=== PATIENT | female | born 1960 | race Caucasian/White ===

== ENCOUNTER 2019-12-23 01:16 | Inpatient (IN) | payer BC ==
[~2019-12-23] VITALS: Ht 162.6 cm; Wt 102.0 kg
[2019-12-23] VITALS (12 sets, daily range): BP systolic 110–131; BP diastolic 58–88
--- NOTE | 2019-12-23 01:10 | NUR ---
Admit to [address] [facility] ED. Patient tripped down 2 stairs and presents w/ dx fractured right femur. Is A&O, [place], right leg in immobilizer. Right leg shorter than left. +2 pedal pulse per palpation. VSS. NPO.
[~2019-12-23 01:16] MED LIST: CHOL10003 PO; FEXO180T81 PO; FLUT9.9S NS
--- NOTE | 2019-12-23 02:10 | NUR ---
Admit orders rec'd from Dr. Vance.
[2019-12-23] MEDS ORDERED: ONDANSETRON PF 4 MG/2 ML VIAL. IVP PRN ×2 (02:30→14:45)
[2019-12-23] MEDS: IV NORMAL SALINE 1000ML BAG 1,000 ML IV SCH ×2 (03:00→21:39)
[2019-12-23] MEDS: MORPHINE SULFATE 2 MG/ML VIAL. IV PRN ×3 (03:02→10:55)
--- NOTE | 2019-12-23 07:18 | NUR ---
16 Fr Wang inserted w/o difficulty. About 300cc nannette urine returned.
--- NOTE | 2019-12-23 07:27 | NUR ---
Consult to Dr. Sanchez called to answering service.
--- NOTE | 2019-12-23 09:08 | NUR ---
SW following. Discussed with RN, pt is from home with family, having hip surgery today. RN advised no SW needs at this time. Possible home health at discharge. SW will continue to follow.
--- NOTE | 2019-12-23 09:44 | PDOC1 ---
History and Physical Date of Admission Date of Admission DATE: 12/23/19 TIME: 09:42 History of Present Illness History of Present Illness Patient is a 59-year-old female presenting with knee pain. She slipped down 6 steps in her house she was having trouble walking she just lost missed a step no other past medical history no daily medications are otherwise healthy did not hit her head no neck pain no back pain just the knee pain no hip pain she tells me. 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 Past Medical History Past Medical History seasonal allergies only Cardiovascular: No pertinent hx Pulmonary: No pertinent hx Hepatobiliary: No pertinent hx Psych: No pertinent hx Rheumatologic: No pertinent hx Infectious disease: No pertinent hx Renal/: Chronic renal failure Past Surgical History Past Surgical History: Hysterectomy (2007) Family History Family History: No Significant Social History Smoke: No ALCOHOL: none Drugs: None Current Medications Current Medications Current Medications Morphine Sulfate (Morphine Sulfate) 2 mg PRN Q2HR PRN IV PAIN Last administered on 12/23/19at 07:14; Start 12/23/19 at 02:30 Ondansetron HCl (Zofran) 4 mg PRN Q4HRS PRN IVP NAUSEA/VOMITING; Start 12/23/19 at 02:30 Sodium Chloride 1,000 ml @ 75 mls/hr [id number] IV Last administered on 12/23/19at 03:00; Start 12/23/19 at 02:30 Active Scripts Active Reported Flonase Allergy Relief (Fluticasone Propionate) 9.9 Ml [place].susp 2 Sprays NS DAILY Vitamin D3 (Cholecalciferol (Vitamin D3)) 1,000 Unit Tablet 2,000 Unit PO DAILY Vy Allergy (Fexofenadine Hcl) 180 Mg Tablet 1 Tab PO DAILY Allergies Allergies: Coded Allergies: No Known Drug Allergies (Unverified , 08/09/16) ROS General: No: Chills, Night Sweats, Fatigue, Malaise, Appetite, Other PSYCHOLOGICAL ROS: No: Anxiety, Behavioral Disorder, Concentration difficultie, Decreased libido, Depression, Disorientation, Hallucinations, Hostility, Irrit ablity, Memory difficulties, Mood Swings, Obsessive thoughts, Physical abuse, Sexual abuse, Sleep disturbances, Suicidal ideation, Other Eyes: No Blurry vision, No Decreased vision, No Double vision, No Dry eyes, No Excessive tearing, No Eye Pain, No Itchy Eyes, No Loss of vision, No Photophobia, No Scotomata, No Uses contacts, No Uses glasses, No Other Respiratory: No: Cough, Hemoptysis, Orthopnea, Pleuritic Pain, Shortness of breath, SOB with excertion, Sputum Changes, Stridor, Tachypnea, Wheezing, Other Cardiovascular: No Chest Pain, No Palpitations, No Orthopnea, No Paroxysmal Noc. Dyspnea, No Edema, No Lt Headedness, No Other Gastrointestinal: No Nausea, No Vomiting, No Abdominal Pain, No Diarrhea, No Constipation, No Melena, No Hematochezia, No Other Genitourinary: No Dysuria, No Frequency, No Incontinence, No Hematuria, No Retention, No Discharge, No Urgency, No Pain, No Flank Pain, No Other, No , No , No , No , No , No , No Musculoskeletal: Yes Gait Disturbance, Yes Joint Pain; No Joint Stiffness, No Joint Swelling, No Muscle Pain, No Muscular Weakness, No Pain In:, No Swelling In:, No Other Neurological: Yes Gait Disturbance; No Behavorial Changes, No Bowel/Bladder ControlChng, No Confusion, No Dizziness, No Headaches, No Impaired Coord/balance, No Memory Loss, No Numbness/Tingling, No Seizures, No Speech Problems, No Tremors, No Visual Changes, No Weakness, No Other Skin: No Dry Skin, No Eczema, No Hair Changes, No Lumps, No Mole Changes, No Mottling, No Nail Changes, No Pruritus, No Rash, No Skin Lesion Changes, No Other, No Acne Physical Exam General: Alert, Oriented X3, Cooperative, moderate distress (pain with any movement) HEENT: Atraumatic, PERRLA Lungs: Clear to auscultation, Normal air movement Heart: S1S2, no gallops, no murmurs Extremities: No clubbing Skin: No breakdown Neuro: Normal speech, Sensation intact Psych/Mental Status: Mental status NL, Mood NL Vitals Vitals Vital Signs Date Time Temp Pulse Resp B/P (MAP) Pulse Ox O2 Delivery O2 Flow Rate FiO2 12/23/19 08:00 Room Air 12/23/19 08:00 18 12/23/19 07:00 99.4 80 123/70 (87) 94 99.4 VTE Prophylaxis Ordered VTE Prophylaxis Devices: No VTE Pharmacological Prophylaxi: No Assessment/Plan Assessment/Plan fall, acute leg pain imaging showed an oblique fracture to distal femur, surg today obese, BMI 38 DAREN GREENBERG MD Dec 23, 2019 09:43
[2019-12-23] MEDS ORDERED: ceFAZolin 2GM PREMIX 2 GM/50 ML BAG IV ONE ×2 (11:00→14:45)
[2019-12-23] MEDS ORDERED: ROCURONIUM 50 MG/5 ML VIAL. ONE (12:38)
[2019-12-23] MEDS ORDERED: ONDANSETRON PF 4 MG/2 ML VIAL. ONE (12:38)
[2019-12-23] MEDS ORDERED: fentaNYL PF VIAL 100 MCG/2 ML VIAL ONE (12:38)
[2019-12-23] MEDS ORDERED: DEXAMETHASONE SOD PHOS 4 MG/ML VIAL ONE ×2 (12:38→16:49)
[2019-12-23] MEDS ORDERED: LIDOCAINE 2% PF 5 ML VIAL. ONE (12:38)
[2019-12-23] MEDS ORDERED: PROPOFOL 20 ML IV ONE (12:38)
[2019-12-23] MEDS ORDERED: IV RINGERS,LACTATED 1000ML 1,000 ML IV SCH (13:54)
[2019-12-23] MEDS ORDERED: fentaNYL PF VIAL 100 MCG/2 ML VIAL IV PRN ×2 (14:00)
[2019-12-23] MEDS ORDERED: HYDROmorphone 2 MG/ML VIAL IV PRN (14:00)
[2019-12-23] MEDS ORDERED: MORPHINE SULFATE 2 MG/ML VIAL. IV PRN (14:00)
[2019-12-23] MEDS ORDERED: ONDANSETRON PF 4 MG/2 ML VIAL. IV PRN (14:00)
[2019-12-23] MEDS ORDERED: PROCHLORPERAZINE 10 MG/2 ML VIAL. IV PRN (14:00)
[2019-12-23] MEDS ORDERED: ceFAZolin SODIUM IV Push 1 GM VIAL. IVP ONE (14:30)
[2019-12-23] MEDS ORDERED: DEXTROSE 50% 25 GM / 50ML DISP.SYRIN. IV PRN (14:45)
[2019-12-23] MEDS ORDERED: fentaNYL PF VIAL 100 MCG/2 ML VIAL IVP PRN (14:45)
[2019-12-23] MEDS ORDERED: POLYETHYLENE GLYCOL 3350 17 GM PACKET. PO PRN (14:45)
[2019-12-23] MEDS ORDERED: MORPHINE SULFATE 2 MG/ML VIAL. IVP PRN (14:45)
[2019-12-23] MEDS ORDERED: HYDROcodone/APAP 7.5/325MG 1 TAB TABLET PO PRN (14:45)
[2019-12-23] MEDS ORDERED: BUPIVACAINE-EPI 0.5%-1:200000 MPF 30 ML VIAL. ONE (15:27)
[2019-12-23] MEDS ORDERED: WARFARIN 7.5 MG TABLET. PO ONE (16:00)
[2019-12-23] MEDS ORDERED: SEVOFLURANE > 120 MINUTES. IH ONE (16:20)
[2019-12-23] MEDS ORDERED: BUPIVACAINE MPF 0.5% 30 ML VIAL. ONE (16:47)
[2019-12-23] MEDS ORDERED: EPINEPHrine 1 MG/ML VIAL ONE (16:47)
--- NOTE | 2019-12-23 17:15 | CONS ---
DATE OF CONSULTATION: 12/23/2019 ORTHOPEDIC CONSULTATION REQUESTING PHYSICIAN: Dr. Ion Vance. REASON FOR CONSULTATION: Right distal femur fracture. HISTORY OF PRESENT ILLNESS: The patient is a 59-year-old female that slipped down her last 6 steps in her house and just missed a step prior. No loss of consciousness, head injury, neck or back pain, just severe knee pain, inability to bear weight. She presented to [facility] Emergency Department and was sent to [place] for further evaluation and treatment due to her distal femur fracture and inability to ambulate. PAST MEDICAL HISTORY AND SURGICAL HISTORY: She really denies any significant medical or surgical history. SOCIAL HISTORY: Denies tobacco, alcohol or drug use. ALLERGIES: She has no known drug allergies. FAMILY HISTORY: Noncontributory. CURRENT MEDICATIONS: Include morphine and Zofran as well as her home medications of Flonase, Vy and vitamin D3. REVIEW OF SYSTEMS: Significant only for the seasonal allergies recently and the recent onset from her fall of the right knee pain and swelling. Again, denies any loss of consciousness, no chest pain, shortness of breath, recent febrile illness. Respiratory symptoms, burning on urination, focal weakness, numbness or tingling. No other extremity pain is noted. PHYSICAL EXAMINATION: GENERAL: Pleasant, cooperative 59-year-old female, alert and oriented, no acute distress. VITAL SIGNS: Blood pressure 123/70, pulse 80, respirations 18, 94% saturation on room air, temperature 99.4. EXTREMITIES: Examination of the right knee reveals significant swelling and tenderness particularly over the medial aspect of the knee. Ligament stability is not assessed due to her severe pain with any movement. She does keep the knee in a flexed position of comfort. She has normal hip and ankle range of motion, stability bilaterally. Normal examination of the contralateral left knee with intact motor function, distal pulses, sensation, reflexes, skin in both lower extremities throughout. IMAGING: X-rays show a mildly displaced supracondylar intercondylar fracture oblique of the right distal femur that extends from the metaphyseal area into the intercondylar notch again with slight displacement on both AP and lateral views. IMPRESSION: Mildly displaced intercondylar supracondylar right distal femur fracture. TREATMENT PLAN: I went over with her that this break does go into the joint surface itself and I would recommend surgical alignment and stabilization. She will still have to be nonweightbearing until we see significant healing, but this will allow her early range of motion of the knee. We did talk about the possibility of nonhealing, infection, nerve or blood vessel damage, medical or other anesthetic complications among others and the fact that she does have some arthritic change, which may progress, although getting this anatomically aligned as possible is the best alternative to minimize the progression of arthritis aside from the injury itself. All her questions were answered. She wishes to proceed with surgical evaluation and treatment, which will occur today. HUNG BERNAL MD DR: SERJIO/get JOB#: [id number] / [id number]
--- NOTE | 2019-12-23 17:43 | PDOC4 ---
Operative Note Operative Note Date of surgery: 12/23/2019 Preoperative diagnosis: Mildly displaced right supracondylar intercondylar distal femur fracture Postoperative diagnosis: Same Operative procedure: Operative reduction internal fixation right supracondylar intercondylar distal femur fracture with medial locking plate fixation Surgeon: Daniel Assist: Pollo Colin nurse practitioner Anesthesia: Gen. Estimated blood loss: 300 mL Complications: None Operative indications: Please see my dictated orthopedic consultation for detailed operative indications and note particularly that I reviewed with the patient concerns that the fracture extends into the joint surface with some mild displacement and contribution to potential early degenerative change in the joint and risks of further displacement with nonoperative treatment versus the possible risks of infection nonhealing nerve or blood vessel damage medical or other anesthetic complications with surgery and under the best of circumstances that she may have some premature degenerative change in the joint due to the nature the injury. All her questions were answered and she wishes to proceed with surgical evaluation and treatment. Operative text: Patient was identified procedure verified after adequate amounts of general endotracheal anesthesia were administered the right lower extremity was prepped and draped in standard sterile fashion and after timeout was performed patient procedure identified and verified a medial incision was made and dissection carried out through the fascia with minimal release of the vastus medialis inferiorly and reduction was somewhat difficult particularly in the lateral plane resulting in the necessity of a lateral incision made of the distal femur splitting the iliotibial band and again preserving vastus lateralis with minimal release posteriorly and otherwise splitting the fibers to obtain access and obtain anatomic reduction with multiple bone-holding forceps. A left sided Shmuel still femoral locking plate was used to approximate the contour of the distal femur along the medial aspect where the fracture needed the most buttressing and after placement of the plate under AP and lateral fluoroscopic views a single cortical screw was placed in the metaphyseal area to stabilize the plate. Distal cancellus screws were each placed under fluoroscopic guidance and noted excellent placement length and fixation and additional cortical fixation was obtained proximally as the fracture was noted to extend proximally into the diaphysis superiorly and laterally. Adequate fixation was obtained proximal to this hand anatomic reduction noted throughout with adequate hardware placement under multiple fluoroscopic views. Knee motion was verified with good patellofemoral tracking bleeding points were controlled by electrocautery thorough irrigation carried out normal saline solution and fascia closure was accomplished with #1 PDS strata fix suture in a running fashion buried Vicryl suture in subcutaneous closure and 3-0 strata fix Monocryl subcuticular on both incisions which were then reinforced with Steri-Strips and Mastisol and sterile soft dressings were applied. Anesthesia performed a femoral block postoperatively and patient was returned to recovery room in stable condition having tolerated procedure well. Pollo Colin nurse practitioner was present for the procedure assisted in the prepping draping retraction and closure and dressings. HUNG BERNAL MD Dec 23, 2019 17:43
[2019-12-24] MEDS: oxyCODONE IR 5 MG TABLET PO PRN ×2 (00:25→08:38)
[2019-12-24 02:59] VITALS: BP 107/58
[2019-12-24 04:20] LABS: HEMATOCRIT 33.8 % (36.0-47.0); HEMOGLOBIN 11.6 g/dL (12.0-15.5)
[2019-12-24 04:25] LABS: PROTHROMBIN TIME PATIENT 13.8 SEC (11.7-14.0)
[2019-12-24] MEDS: IV NORMAL SALINE 1000ML BAG 1,000 ML IV SCH (05:10)
[2019-12-24] MEDS ORDERED: MAGNESIUM HYDROXIDE 2,400 MG/30 ML ORAL.SUSP. PO PRN (06:00)
[2019-12-24 07:00] VITALS: BP 114/76
--- NOTE | 2019-12-24 08:52 | NUR ---
KESHA following. Discussed with RN, pt from home with family. PT/OT ordered. KESHA awaiting recommendations. Addendum: 12/24/19 at 1221 by DOMINIK REBOLLEDO PT recommending home with assistance. KESHA will continue to follow. Addendum: 12/24/19 at 1425 by DOMINIK REBOLLEDO Discharge order for home health. KESHA met with pt and pt's daughter at bedside. Pt agreeable to home health, would like [facility] as her has had this in the past. Pt agreeable to any home health agency if [facility] cannot accept. KESHA faxed referral, [facility] cannot accept due to being at capacity. KESHA faxed to [facility], awaiting acceptance decision. RN notified. Addendum: 12/24/19 at 1528 by DOMINIK CHAMBERLAIN SW [facility] is also at capacity. Referral faxed to [facility]. Awaiting acceptance decision.
[2019-12-24] MEDS ORDERED: SENNOSIDES/DOCUSATE 8.6/50MG TABLET. PO SCH (09:00)
[2019-12-24] MEDS ORDERED: CETIRIZINE HCL 10 MG TABLET. PO SCH (09:00)
[2019-12-24] MEDS ORDERED: FLUTICASONE 50MCG/NASAL SPRAY 16GM BOTTLE. NS SCH (09:00)
[2019-12-24] MEDS ORDERED: CHOLECALCIFEROL (VITAMIN D3) 1,000 UNIT TABLET PO SCH (09:00)
[2019-12-24 11:00] VITALS: BP 122/57
--- NOTE | 2019-12-24 11:04 | NUR ---
Pharmacy Warfarin Dosing Note S:Pharmacy consulted to assist with anticoagulation therapy started 12/23/19 with target INR: 1.6 - 2.5 O:LISETH EPPS is a 59 year old F with TKA FEMUR FRACTURE 2/2 FALL LABS: Last INR: 1.1 Last HGB: 11.6 Last HCT: Last PLT: Last dose of 7.5 mg given on 12/23/19 at 1600 Previous Regimen: Vitamin K given: N Drug Interaction Changes: Ongoing Drug Interactions: A:INR of 1.1 is below desired range. Target range for this patient is: 1.6 - 2.5 P: Warfarin dose: 6 mg Today at 1600 Bridge Therapy: Next INR due IN AM Pharmacy anticoagulation service will continue to follow. ALVERTO GEE [facility], 12/24/19 [id number]
[2019-12-24] MEDS ORDERED: WARF-78 PO (11:37)
[2019-12-24] MEDS ORDERED: OXYC-325 PO (11:37)
[2019-12-24] MEDS ORDERED: POLY17PO28 PO (11:37)
--- NOTE | 2019-12-24 12:52 | PDOC3 ---
Discharge Summary Visit Information Date of Admission: Dec 23, 2019 Date of Discharge: Dec 24, 2019 Final Diagnosis fall, acute leg pain imaging showed an oblique fracture to distal femur, surg today obese, BMI 38 Brief Hospital Course Allergies Allergies Coded Allergies Type Severity Reaction Last Updated Verified No Known Drug Allergies 12/23/19 No Vital Signs Vital Signs Date Time Temp Pulse Resp B/P (MAP) Pulse Ox O2 Delivery O2 Flow Rate FiO2 12/24/19 11:00 98.4 98 20 122/57 (78) 91 Room Air 98.4 12/24/19 07:00 2.0 Lab Results Laboratory Tests Test 12/24/19 03:40 Hemoglobin 11.6 g/dL (12.0-15.5) Hematocrit 33.8 % (36.0-47.0) Mean Corpuscular Hemoglobin Concent 34 g/dL (31-37) Prothrombin Time 13.8 SEC (11.7-14.0) Prothromb Time International Ratio 1.1 (0.8-1.1) Laboratory Tests Test 12/24/19 03:40 Hemoglobin 11.6 g/dL (12.0-15.5) Hematocrit 33.8 % (36.0-47.0) Mean Corpuscular Hemoglobin Concent 34 g/dL (31-37) Prothrombin Time 13.8 SEC (11.7-14.0) Prothromb Time International Ratio 1.1 (0.8-1.1) Brief Hospital Course Ms. Kenney is a 59 old admti with acute fracture. to surg on 12/22, did well, more mobile, [place] home with family, home health Discharge Information Condition at Discharge: Improved Follow Up: Weeks Disposition/Orders: D/C to Home w/ HH Scheduled Cholecalciferol (Vitamin D3) (Vitamin D3) 1,000 Unit Tablet, 2,000 UNIT PO DAILY, (Reported) Entered as Reported by: SOY LOPEZ on 08/09/16739 Last Action: Continued on 12/23/19942 by DAREN GREENBERG Fexofenadine Hcl (Vy Allergy) 180 Mg Tablet, 1 TAB PO DAILY, #30 Ref 2 (Reported) Entered as Reported by: SOY LOPEZ on 08/09/16739 Last Action: Converted on 12/23/19942 by DAREN GREENBERG Fluticasone Propionate (Flonase Allergy Relief) 9.9 Ml [place].susp, 2 SPRAYS NS DAILY, (Reported) Entered as Reported by: SOY LOPEZ on 08/09/16 0741 Last Action: Converted on 12/23/19 0943 by DAREN GREENBERG Warfarin Sodium (Coumadin) 5 Mg Tablet, 5 MG PO DAILY for prevent DVT post surg, #30 Prescribed by: DAREN GREENBERG on 12/24/19 1137 Scheduled PRN Oxycodone HCl/Acetaminophen (Percocet 5-325 mg Tablet) 1 Each Tablet, 1 TAB PO PRN TID PRN for PAIN MDD 2 Tablet(s) for 5 Days, #10 Ref 0 Prescribed by: DAREN GREENBERG on 12/24/19 113 Polyethylene Glycol 3350 (Polyethylene Glycol 3350) 17 Gm Powd.pack, 17 GM PO PRN DAILY PRN for CONSTIPATION, #30 Prescribed by: DAREN GREENBERG on 12/24/19 1137 Patient Instructions Patient Instructions < 30 min face to face DAREN GREENBERG MD Dec 24, 2019 12:52
--- NOTE | 2019-12-24 13:12 | SNU/HH DC ---
DISCHARGE WITH HOME HEALTH DISCHARGE INFORMATION: Discharge Date: Dec 24, 2019 Condition on Discharge: Stable CODE STATUS: Code Status: Full HOME HEALTH: Face to Face: I certify this patient is under my care and that I, or a nurse practitioner or darvin freeman's fitter's assistant working with me, had a face to face encounter that meets the physician face to face encounter requirements with this patient on 12/22- Medical Complications: Falls, Other (femur fracture, ) RN For Eval/Treatment: No Physical Therapy For: Evalulation/Treatment Occupational Therapy For: Evaluation/Treatment Pt Meets Homebound Status: Poor coordination w/ amb., Unsteady balance w/ amb,, Other: (leg fracture) POST DISCHARGE ORDERS: Activity Instructions for Disc: Activity as tolerated FOLLOW-UP: Follow Up With: Dr. Sanchez in 1-2 weeks. [phone] CERTIFICATION STATEMENT: Certification Statement: Certification Statement: Based on the above finding, I certify that this patient is confined to the home and needs intermittent long term care, physical therapy and/or speech therapy, or continues to need occupational therapy.~ This patient is under my care, and I have initiated the establishment of the plan of care.~ This patient will be followed by myself or a community physician who will periodically review the plan of care. Home Meds Active Scripts Oxycodone HCl/Acetaminophen (Percocet 5-325 mg Tablet) 1 Each Tablet, 1 TAB PO PRN TID PRN for PAIN MDD 2 Tablet(s) for 5 Days, #10 TAB 0 Refills Prov:DAREN GREENBERG MD 12/24/19 Warfarin Sodium (COUMADIN) 5 Mg Tablet, 5 MG PO DAILY for prevent DVT post surg, #30 TAB Prov:DAREN GREENBERG MD 12/24/19 Polyethylene Glycol 3350 (POLYETHYLENE GLYCOL 3350) 17 Gm Powd.pack, 17 GM PO PRN DAILY PRN for CONSTIPATION, #30 PKT Prov:DAREN GREENBERG MD 12/24/19 Reported Medications Fluticasone Propionate (Flonase Allergy Relief) 9.9 Ml [place].susp, 2 SPRAYS NS DAILY, BOTTLE 08/09/16 Cholecalciferol (Vitamin D3) (VITAMIN D3) 1,000 Unit Tablet, 2000 UNIT PO DAILY 08/09/16 Fexofenadine Hcl (JALIL ALLERGY) 180 Mg Tablet, 1 TAB PO DAILY, #30 TAB 2 Ref ills 08/09/16 DAREN GREENBERG MD Dec 24, 2019 13:12
--- NOTE | 2019-12-24 13:35 | NUR ---
Discharge instructions and belongings reviewed with patient, verbalized understanding. Patient was escorted out via wheelchair by Nisa RODRIGUEZ accompanied by her daughter.
[2019-12-24] MEDS ORDERED: BISACODYL 10 MG SUPP.RECT. PR PRN (16:00)
[2019-12-24] MEDS ORDERED: WARFARIN 3 MG TABLET. PO ONE (16:00)
== END 2019-12-24 14:23 | disposition home health service (06) | DRG 482 ==
LOC: 4 NORTH 01:16
PROVIDERS: ADMIT Internal Medicine; ATTEND Internal Medicine
PROC: 0QSB04Z Reposition Right Lower Femur with Internal Fixation Device, Open Approach (ICD-10-PCS; principal; 2019-12-23 12:00)
DX: S72.401A Unspecified fracture of lower end of right femur, initial encounter for closed fracture (principal); E66.9 Obesity, unspecified; N18.9 Chronic kidney disease, unspecified; Z68.38 Body mass index [BMI] 38.0-38.9, adult; Z90.710 Acquired absence of both cervix and uterus; W18.39XA Other fall on same level, initial encounter; Y93.89 Activity, other specified; Y92.89 Other specified places as the place of occurrence of the external cause; Y99.8 Other external cause status
CPT/HCPCS: 36415; 76000; 85014; 85018; 85610; A7015; C1713; J0171; J0690; J0696; J1100; J2001; J2270; J2405; J2704; J3010; J3490; J7030; J7120; G0378